=== PATIENT | female | born 1980 | race Caucasian/White ===

== ENCOUNTER 2017-09-11 09:04 | Emergency (ER) | payer BC, SELFPAY ==
[2017-09-11 09:05] VITALS: BP 119/42; PULSE 74; RESP 16; TEMP 37.1; O2SAT 100; BMI 25.2
--- NOTE | 2017-09-11 09:22 | CT_ITS ---
STUDY: CT ABDOMEN AND PELVIS WITH CONTRAST REASON FOR EXAM: Female, 37 years old. Left-sided abdominal pain. RADIATION DOSAGE (If Supplied By Facility): CTDIvol = ( 15.12 ) mGy, DLP = ( 670.72 ) mGycm TECHNIQUE: Transaxial images were obtained from the dome of the diaphragm to the symphysis pubis with oral contrast. 100 ml of Isovue 300 contrast was administered. Sagittal and coronal images were reconstructed. Individualized dose optimization techniques were used for this CT. COMPARISON: Comparison is made with prior study dated November 18, 2014. FINDINGS: The visualized lung bases are unremarkable. The visualized portions of the heart are within normal limits. Normal liver. The patient is status post cholecystectomy. Normal spleen. Normal pancreas. Normal bilateral adrenal glands. Normal right kidney. Normal left kidney. Normal visualized stomach. Normal small intestine. Normal colon. The appendix is visualized and appears normal. Normal abdominal aorta. Normal inferior vena cava. Normal retroperitoneum. Normal urinary bladder. There is absence of the uterus consistent with a prior hysterectomy. Findings suggestive of a 1.7 cm follicular cyst in the right ovary. Normal abdominal wall. 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 No evidence of listhesis. CT/Abdomen/Pelvis WITH Contrast IMPRESSION: No acute abnormality is seen. Electronically Signed: Danial Smith MD at 11:39 EST Tel [phone], Service support ,
[2017-09-11 09:43] LABS: Absolute Lymphocyte Count 2.17 X10^3/ul (0.83-4.51); Basophil# 0.04 X10^3/uL; Basophil% 0.6 % (0-1); Eosinophil# 0.16 X10^3/uL; Eosinophils% 2.4 % (0-5); Hematocrit 44.1 % (37-47); Hemoglobin 14.2 g/dl (12.0-15.0); Lymphocyte # 2.17 X10^3/ul (4.0); Mean Corp Hgb Conc 32.2 g/gl (32-36); Mean Corpuscular Hgb 26.8 pg (27.0-32.0); Mean Corpuscular Volume 83.4 fL (81-99); Mean Platelet Vol. 11.4 fl (6.2-12.0); Monocyte% 5.9 % (0-10); Neutrophil # 4.01 X10^3/uL (2.7-7.7); POSITIVE COUNT NO; POSITIVE DIFFERENTIAL NO; POSITIVE MORPHOLOGY NO; Platelet Count 194 K/mm3 (150-450); RBC Distribution Width CV 14.4 % (11.6-14.6); RBC Distribution Width SD 44.1 fl (35.1-43.9); Red Blood Count 5.29 M/mm3 (4.2-5.4); White Blood Count 6.8 K/mm3 (4.4-11.0)
[2017-09-11] MEDS: Ondansetron 4 MG/2 ML Vial IV (09:49)
[2017-09-11 10:01] LABS: Bacteria 0 SEEN /hpf (None Seen); Mucous, Urine 0 SEEN /hpf (<or=2+); Red Blood Cells-Urine 0 SEEN /hpf (0-5); White Blood Cells 0 SEEN /hpf (0-5)
[2017-09-11 10:01] LABS: ALB/GLOB Ratio 1.3 RATIO (0.9-2.4); AST(SGOT) 9 U/L (15-37); Alanine Aminotransfer ALT/SGPT 16 U/L (13-56); Albumin, Serum 4.1 g/dL (3.2-5.0); Alkaline Phosphatase 46 U/L (45-117); Anion Gap 7 (5-15); BUN 10 mg/dL (7-18); BUN/Creat Ratio 12.5 RATIO (10-20); Calcium,Total 8.7 mg/dL (8.5-10.1); Chloride 109 mmol/L (98-107); EST Glomerular Filtration Rate 86 mL/min (>60); Est Glom Filt Rate - Afr Amer 104 mL/min (>60); Estimated Creatinine Clearance 87.48 ml/min; Globulin 3.1 g/dL (2.2-4.2); Glucose 89 mg/dL (74-106); Lipase 155 U/L (73-393); Potassium 3.7 mmol/L (3.5-5.1); Protein, Total 7.2 g/dL (6.4-8.2); Sodium Level 140 mmol/L (136-145)
[2017-09-11 10:04] LABS: Color, Urine Yellow (Yellow); Glucose, Dipstick Normal (Normal); Ketone-Dipstick Negative (Negative); Leukocyte Esterase-Dipstick Negative /ul (Negative); Nitrite-Dipstick Negative (Negative); Occult Blood-Urine Negative /ul (Negative); Protein-Dipstick Negative (Negative); Specific Gravity, Urine 1.005 (1.002-1.030); Urine Bilirubin Dipstick Negative (Negative); Urine Clarity Clear (Clear); Urine Urobilinogen Normal (Normal)
[2017-09-11 10:05] LABS: Internal QC Validated? YES +Cl - CLEAR BKGD
[2017-09-11 10:06] LABS: Pregnancy, Urine Negative Negative
[2017-09-11 10:14] LABS: Squamous Epithelial Cells - UA 0-5 SEEN /hpf (5-10)
--- NOTE | 2017-09-11 12:08 | ED.DCSUM_ITS ---
- ER Visit Summary Date of Service: 09/11/17 Chief Complaint: Abdominal pain History of Present Illness: The patient is a 37 F who presents with abdominal pain. She states it is been constant for at least 3 weeks. She does have a history of similar symptoms for years. She states her pain has been worse since yesterday. It is sharp. It is located in the mid left abdomen. She reports nausea without vomiting. No diarrhea or constipation. No fevers. No dysuria frequency urgency or hematuria. Physical Examination: Afebrile vitals are normal Moist mucous membranes Heart regular rate and rhythm Lungs are clear Abdomen soft nondistended with mid left abdominal pain without guarding or rebound Alert Test Results: CBC CMP lipase and urinalysis all unremarkable. negative. CT of the abdomen and pelvis shows no acute abnormality. Emergency Department Course and Treatment: The patient presents with chronic abdominal pain. She has had constant pain for at least 3 weeks with a benign physical examination. She has no guarding or rebound. She has normal vital signs. Laboratory studies and CT are unremarkable. I advised that she follow- up as an outpatient with her primary care physician. She understands to return for new or worsening symptoms and was advised of specific signs and symptoms which should prompt return here to the emergency department for reevaluation. Patient discharged. Treatment Plan: [] Disposition: Discharge Impression: Chronic abdominal pain This note was generated with [employer] dictation software. It may contain incorrect words, spelling, and punctuation that were not noted in review of the chart prior to signing ED Disposition - Plan for ED Patient: Chief Complaint: Abd Pain Referrals: Ashvin Luke MD [Primary Care Provider] -
--- NOTE | 2017-09-11 12:08 | ED.DEP ---
ED Disposition - Plan for ED Patient: Chief Complaint: Abd Pain Instructions: ED Abdominal Pain Unkn Cause Referrals: Ashvin Luke MD [Primary Care Provider] -
[2017-09-11 12:15] VITALS: BP 108/57; PULSE 69; RESP 16; O2SAT 97
== END 2017-09-11 12:18 | disposition home or self-care (01) ==
PROVIDERS: Emergency Provider Emergency Medicine; Family Provider Family Medicine; PCP Family Medicine
DX: R10.9 Unspecified abdominal pain (principal); G89.29 Other chronic pain; G43.909 Migraine, unspecified, not intractable, without status migrainosus; Z72.0 Tobacco use; Z79.899 Other long term (current) drug therapy
CPT/HCPCS: 74177; 80053; 81001; 81025; 83690; 85025; 96374; 99283; A4216; J2405

== ENCOUNTER 2021-08-22 14:42 | Emergency (ER) | payer BC, SELFPAY ==
[2021-08-22 14:44] VITALS: BP 90/56; PULSE 76; RESP 18; TEMP 35.7; O2SAT 97; BMI 27.0
[2021-08-22 14:47] VITALS: RESP 16; O2SAT 97
--- NOTE | 2021-08-22 14:47 | EKG12_ITS ---
Test Reason : SOB Blood Pressure : / mmHG Vent. Rate : 072 BPM Atrial Rate : 072 BPM P-R Int : 176 ms QRS Dur : 078 ms QT Int : 404 ms P-R-T Axes : 044 077 063 degrees QTc Int : 442 ms Normal sinus rhythm with sinus arrhythmia Nonspecific T wave abnormality Abnormal ECG Confirmed by ROB CULLEN, DAGOBERTO ([id number]), editor at large DUSTIN JOHNSON ([id number]) on 08/23/2021 11:38:21 AM Referred By: HEMALATHA/VALENTINA Confirmed By:DAGOBERTO RIVAS MD
[2021-08-22 15:23] LABS: Absolute Lymphocyte Count 2.69 X10^3/uL (0.83-4.51); Absolute Neutrophil Count 4.8 X10^3/uL (2.0-7.7); Basophil# 0.05 X10^3/uL; Basophil% 0.6 % (0-1); Eosinophil# 0.08 X10^3/uL; Hematocrit 40.7 % (37-47); Hemoglobin 13.4 g/dL (12.0-15.0); Lymphocyte # 2.69 X10^3/ul (0.83-4.51); Lymphocyte % 33.2 % (19-41); Mean Corp Hgb Conc 32.9 g/dL (32-36); Mean Corpuscular Hgb 27.3 pg (27.0-32.0); Mean Corpuscular Volume 82.9 fL (81-99); Mean Platelet Vol. 11.2 fl (6.2-12.0); Monocyte# 0.52 X10^3/uL; Monocyte% 6.4 % (0-10); NRBC Flagged by Analyzer 0 % (0-5); Neutrophil # 4.75 X10^3/uL (2.7-7.7); Neutrophil % 58.7 % (47-70); Platelet Count 238 K/mm3 (150-450); RBC Distribution Width CV 14.6 % (11.6-14.6); RBC Distribution Width SD 44.2 fl (35.1-43.9); Red Blood Count 4.91 M/mm3 (4.2-5.4); White Blood Count 8.1 K/mm3 (4.4-11.0)
[2021-08-22 15:34] LABS: Anion Gap 5 (5-15); BUN 9 mg/dL (7-18); BUN/Creat Ratio 11.8 RATIO (10-20); Chloride 114 mmol/L (98-107); Creatinine, Serum 0.76 mg/dL (0.55-1.02); EST Glomerular Filtration Rate 89 mL/min (>60); Est Glom Filt Rate - Afr Amer 108 mL/min (>60); Estimated Creatinine Clearance 88.54 ml/min; Glucose 115 mg/dL (74-106); Potassium 3.6 mmol/L (3.5-5.1); Sodium Level 143 mmol/L (136-145)
--- NOTE | 2021-08-22 16:27 | EDS_ITS ---
HPI History of Present Illness Chief Complaint: Shortness of Breath Informant: patient Narrative Narrative: Patient presents with some cough malaise left-sided chest pain. She states her symptoms started on about 04 August. She had had a prior negative Covid test and then she had a positive home test on that date. She has had headaches, nausea. Malaise and myalgias. She states most of her symptoms now are the decreased appetite malaise myalgias and a cough. She has never brought up sputum or blood. She does have left-sided rib/chest pain. Its been there for most of the time. She did get a low oxygen saturation at 89% yesterday. But she took her daughters nebulizer treatment and it helped dramatically. She states that she really had improvement of her breathing and did not feel short of breath. She is a smoker and has used inhalers in the past but has never been officially diagnosed with asthma. She states she has been hearing some intermittent wheezing. PFSH PFSH Medical History no medical history Home Medications topiramate 200 mg PO DAILY 09/11/17 [History Last Taken Unknown] albuterol sulfate [Ventolin HFA] 2 puff INHALATION Q4H PRN PRN #1 inhaler 08/22/21 [Rx Last Taken Unknown] dexamethasone [Decadron] 6 mg PO DAILY #9 tab 08/22/21 [Rx Last Taken Unknown] Allergy/AdvReac Type Severity Reaction Status Date / Time No Known Allergies Allergy Verified 08/22/21 14:42 Social History Smoking Status: Current every day smoker tobacco type: cigarettes ROS ROS ED Constitutional Constitutional ED: Reports chills and fever(s) Eyes Eyes: Denies blurry vision ENT ENT ED: Reports rhinorrhea; Denies sore throat Cardiovascular Cardiovascular: Reports chest pain; Denies palpitations or racing heartbeat Respiratory/Chest Respiratory/Chest: Reports cough and dyspnea; Denies sputum Gastrointestinal Gastrointestinal: Reports nausea; Denies abdominal pain, diarrhea or vomiting Genitourinary Genitourinary ED: Denies dysuria Musculoskeletal Musculoskeletal: Reports myalgias Integumentary Denies rash Neurologic Neurologic: Reports headache(s) Psychiatric Psychiatric: Denies anxiety or depression Endocrine Endocrinology: Reports polydipsia; Denies polyuria Hematologic/Lymphatic Hematologic/Lymphatic: Denies easy bruising Allergic/Immunologic Allergic/Immunologic ED: Denies mouth swelling or urticaria EXAM Physical Exam Const Vital Signs: 08/22/21 14:44 08/22/21 14:47 08/22/21 16:35 Temperature 96.2 F L Temperature Source Temporal Pulse Rate 76 Respiratory Rate 18 16 Respiratory Effort Normal Respiratory Depth Normal Respiratory Pattern Normal Blood Pressure 90/56 L Blood Pressure Mean 67 Pulse Ox 97 97 Oxygen Delivery Method Room Air Room Air Room Air 08/22/21 17:08 08/22/21 18:20 Temperature Temperature Source Pulse Rate 87 77 Respiratory Rate 16 17 Respiratory Effort Respiratory Depth Respiratory Pattern Blood Pressure 124/78 H 128/76 H Blood Pressure Mean 93 93 Pulse Ox 98 97 Oxygen Delivery Method Room Air Room Air Positive well nourished and well developed General Appearance ED: well developed and NAD HEENT Reports moist mucous membranes atraumatic Eyes General Eye ED: Negative for pale conjunctiva or scleral icterus Neck no meningeal signs and no JVD Resp normal respiratory effort and clear to auscultation bilaterally Resp Narrative: No real pleuritic pain. But she does have some tenderness to the left chest wall. I do not hear wheezing at this time. However the patient also states she does not feel as though she is wheezing. Auscultation: Negative for rales, rhonchi or wheezes Cardio regular rate, regular rhythm and no murmurs GI non-tender Palpation: soft Back/Spine normal to inspection Extremity normal to inspection General Extremety ED: Negative for edema or tenderness General Extremity: Negative for edema Neuro Sensorium / Orientation: alert Psych mental status grossly normal Skin Lesions: no lesions Rashes: no rashes MDM MDM MDM Narrative Medical decision making narrative: Patient has a normal CBC. Electrolytes are overall unremarkable other than minimal changes of chloride and glucose. D- dimer is negative. Troponin is negative. Chest x-ray shows some very subtle findings of Covid. I will start the patient on Decadron as she has a history of bronchospasm and got much better with inhaler. She also had one low O2 saturation but she is not having low O2 sats here. Even walking moving around she is staying in the mid upper 90s. We discussed reasons to return. Lab Data Attestation: I reviewed the patient's lab results. Labs: Laboratory Results - last 24 hr 08/22/21 08/22/21 08/22/21 15:10 15:10 15:10 WBC 8.1 RBC 4.91 Hgb 13.4 Hct 40.7 MCV 82.9 MCH 27.3 MCHC 32.9 RDW Std Deviation 44.2 H RDW Coeff of Renzo 14.6 Plt Count 238 MPV 11.2 Immature Gran % (Auto) 0.100 Neut % (Auto) 58.7 Lymph % (Auto) 33.2 [place] % (Auto) 6.4 Eos % (Auto) 1.0 Baso % (Auto) 0.6 Absolute Neuts (auto) 4.8 Absolute Lymphs (auto) 2.69 Nucleated RBC % 0 D-Dimer Quant (PE/DVT) 0.39 Sodium 143 Potassium 3.6 Chloride 114 H Carbon Dioxide 24.0 Anion Gap 5 BUN 9 Creatinine 0.76 Estim Creat Clear Calc 88.54 Est GFR (MDRD) Af Amer 108 Est GFR (MDRD) Non-Af 89 BUN/Creatinine Ratio 11.8 Glucose 115 H Calcium 9.0 Troponin I High Sens 08/22/21 15:10 WBC RBC Hgb Hct MCV MCH MCHC RDW Std Deviation RDW Coeff of Renzo Plt Count MPV Immature Gran % (Auto) Neut % (Auto) Lymph % (Auto) [place] % (Auto) Eos % (Auto) Baso % (Auto) Absolute Neuts (auto) Absolute Lymphs (auto) Nucleated RBC % D-Dimer Quant (PE/DVT) Sodium Potassium Chloride Carbon Dioxide Anion Gap BUN Creatinine Estim Creat Clear Calc Est GFR (MDRD) Af Amer Est GFR (MDRD) Non-Af BUN/Creatinine Ratio Glucose Calcium Troponin I High Sens < 3 L Radiography Diagnostic Testing: Clinical Impression(s) from Imaging Studies Chest X-Ray 08/22/21 16:32 IMPRESSION: Mild bibasilar interstitial thickening possibly due to mild changes of Covid 19 pneumonia. Electronically Signed: Fredy Jaeger MD at 16:46 EST , EKG Initial EKG: Comments: EKG done for chest pain dyspnea read by me shows a normal sinus rhythm with overall rate of 72. No ventricular ectopy. No acute ST elevation or depression. There is nonspecific diffuse ST and T wave flattening. CO interval, QRS duration and QTc normal. No S1, Q3, T3 Discharge Plan Triage Chief Complaint: Shortness of Breath ED Provider: Benjie Hope Dx/Rx/DC Orders Clinical Impression: Pneumonia due to 2019 novel coronavirus, Acute bronchospasm Instructions: Coronavirus Disease 2019 (COVID-19): Caring for Yourself or Othe rs Prescriptions: New dexamethasone [Decadron] 6 mg tablet 6 mg PO DAILY Qty: 9 RF: 0 albuterol sulfate [Ventolin HFA] 1 INHALER inhaler 2 puff inhalation Q4H PRN PRN (Reason: Wheezing) Qty: 1 RF: 0 No Action topiramate 200 MG tablet 200 mg PO DAILY RF: 0 Primary Care Provider: Ashvin Luke Referrals: Ashvin Luke MD [Primary Care Provider] - 3-5 Days if not improving Disposition Disposition: Home, Self Care
--- NOTE | 2021-08-22 16:32 | RAD_ITS ---
STUDY: X-RAY CHEST REASON FOR EXAM: Female, 41 years old. SOB TECHNIQUE: AP portable COMPARISON: None. FINDINGS: Mild bibasilar interstitial thickening possibly due to mild changes of Covid 19 pneumonia. There is no demonstrated pleural abnormality. Normal size heart. Normal mediastinum and salima. Normal visualized pulmonary arteries. Normal visualized aortic arch and descending thoracic aorta. Normal visualized thoracic spine. Normal visualized ribs, clavicles, and shoulders. There is no demonstrated abnormality of the visualized soft tissue structures of the upper abdomen. RAD/Chest 1 View (Portable) IMPRESSION: Mild bibasilar interstitial thickening possibly due to mild changes of Covid 19 pneumonia. Electronically Signed: Fredy Jaeger MD at 16:46 EST ,
[2021-08-22 16:35] VITALS: O2SAT 97
[2021-08-22 17:02] LABS: Troponin-I HS < 3 pg/mL (3.0-54.0)
[2021-08-22 17:06] LABS: D-Dimer Quantitative (DVT/PE) 0.39 FEU/ug/m (0.27-0.49)
[2021-08-22 17:08] VITALS: BP 124/78; PULSE 87; RESP 16; O2SAT 98
[2021-08-22 18:20] VITALS: BP 128/76; PULSE 77; RESP 17; O2SAT 97
[2021-08-22] MEDS: dexAMETHasone 4 MG Tablet 6 MG PO (18:36)
[2021-08-22 18:41] VITALS: PULSE 64; RESP 16; O2SAT 96
--- NOTE | 2021-08-23 13:09 | CASEMGMT ---
SOPHIA GOINS ED follow-up Date of ER visit: 08/22/2021 Presenting ER complaint: shortness of breath, COVID positive SOPHIA GOINS placed call to patient's telephone number listed on demographics- patient answered. Patient states feeling a lot better than I was yesterday. Patient reports monitoring SpO2 at home and everything is good. Patient taking prescribed medications as ordered. Patient plans to schedule PCP follow-up appointment today. Patient denies questions or concerns. SOPHIA Rowe CM
== END 2021-08-22 18:41 | disposition home or self-care (01) ==
PROVIDERS: Emergency Provider Emergency Medicine; PCP Family Medicine; Visit Provider Emergency Medicine
DX: U07.1 COVID-19 (principal); J12.82 Pneumonia due to coronavirus disease 2019; R07.81 Pleurodynia; R11.0 Nausea; J98.01 Acute bronchospasm; R09.02 Hypoxemia; F17.210 Nicotine dependence, cigarettes, uncomplicated; M79.10 Myalgia, unspecified site; R51.9 Headache, unspecified; Z79.899 Other long term (current) drug therapy
CPT/HCPCS: 71045; 80048; 84484; 85025; 85379; 93005; 99284